=== PATIENT | female | born 1960 | race Caucasian/White ===

== ENCOUNTER 2016-09-03 17:20 | Emergency (ER) | payer OTHER ==
[~2016-09-03] VITALS: Ht 165.1 cm; Wt 63.8 kg
[~2016-09-03 17:20] MED LIST: LEVO75TA10 PO
[2016-09-03 17:22] VITALS: TEMP 98.3; Ht 165.1 cm; Wt 63.8 kg
--- OUTSIDE RECORDS SUMMARY | 2016-09-03 17:23 | XMS REPORT | Continuity of Care Document ---
Author Author [facility] Organization [facility] Address Unknown Phone Unavailable Support Name Relationship Address Phone CORTEZ BOUCHER DO Caregiver [address] [place] [address] Unavailable REANNA HERRERA DPM Caregiver [address] [place] [address] Unavailable MONTESINOS CHAD S Next Of Kin [address] [place] [address] Unavailable Insurance Providers Guarantor Edna Montesinos Address [address] [place] [address] Email [email or web address] Payer [employer] Policy Number [id number] Subscriber's Name Chad Montesinos Relationship 01 Spouse Advance Directives Directive Response Recorded Date/Time Resuscitation Documents on File No 11/10/15 6:25am DPOA for Healthcare Only No 11/10/15 6:25am Problems No problem information available. Medications Current Home Medications Medication Dose Units Route Directions Days Qty Instructions Start Date Levothyroxine Sodium 75 Mcg Tablet 0.5 Tab Oral Before Breakfast Once daily before breakfast. 11/09/15 Past Home Medications Medication Directions Ordered Status Levothyroxine Sodium 25 Mcg Tablet, 12.5 Mcg Oral Before Breakfast 11/08/15 Discontinued Social History Social History Problem Response Recorded Date/Time Onset Date Status Chewing Tobacco Status No 11/10/2015 6:32am Not Applicable Not Applicable Hx Substance Use No 11/10/2015 6:32am Not Applicable Not Applicable Hx Alcohol Use No 11/10/2015 6:32am Not Applicable Not Applicable Has the pt used tobacco in the last 12 months No 11/10/2015 6:32am Not Applicable Not Applicable Query Response Start Date Stop Date Smoking Status Never smoker Hospital Discharge Instructions Instructions: Care Instructions: Reason for Hospitalization: surgery I was in the hospital because (patient own words): FIX BUNION AND HAMMER TOE LEFT FOOT Discharge Diet: regular Follow Up Appointments: 10 days Pending Lab / Results: No Pending Lab Patient Instructions: see paper work Wound/Incision Care: n/a Durable Medical Equipment: CAM walker Notify Physician If: see paper work General Information: see paper work Condition at time of discharge: Good Plan of Care Discharge Date 11/10/15 9:35am Prescriptions See Medication Section Functional Status Query Response Date Recorded Ability to complete ADL's impeded by Impaired Mobility November 10, 2015 6:25am Allergies, Adverse Reactions, Alerts Allergen Type Severity Reaction Status Last Updated Walnuts Allergy Unknown ITCHING IN MOUTH Active 11/08/15 Dairy Adverse Reaction Unknown INTOLERANCE Active 11/08/15 Gluten Adverse Reaction Unknown INTOLERANCE Active 11/08/15 Immunizations Query Response on File Recorded Date/Time Hx Influenza Vaccination No 11/10/15 6:32am Hx Pneumococcal Vaccination No 11/10/15 6:32am Hx Influenza Vaccination No 11/10/15 6:32am Vital Signs Acute Vital Signs Vital Response Date/Time Temperature (Fahrenheit) 97.1 deg F (96.8 - 99.1) 11/10/2015 8:28am Temperature (Calculated Celsius) 36.78994 degrees C (36.0 - 37.3) 11/10/2015 8:28am Temperature Source Temporal 11/10/2015 8:28am Pulse Rate (adult) 49 bpm (60 - 100) 11/10/2015 9:07am Respiratory Rate 16 breaths/min (10 - 20) 11/10/2015 9:07am O2 Sat by Pulse Oximetry 100 % (90 - 100) 11/10/2015 9:07am Oxygen Delivery Method Room Air 11/10/2015 9:07am Blood Pressure 153/68 mm Hg 11/10/2015 9:07am Blood Pressure Source Automatic Cuff 11/10/2015 8:45am Height (Feet) 5 feet 11/10/2015 6:02am Height (Inches) 5.50 inches 11/10/2015 6:02am Weight (Kilograms) 62.700 kg 11/10/2015 6:02am Body Mass Index (BMI) 22.7 11/10/2015 6:02am Results No known relevant diagnostic tests, laboratory data and/or discharge summary. Procedures Procedure Status Date Provider(s) Bunionectomy, left Completed 11/10/15 REANNA HERRERA DPNaila Encounters Encounter Location Arrival/Admit Date Discharge/Depart Date Attending Provider Departed [facility] 11/10/15 5:39am 11/10/15 9: 35am REANNA HERRERA DPM
--- OUTSIDE RECORDS SUMMARY | 2016-09-03 17:24 | XMS REPORT | Continuity of Care Document ---
Author Author [facility] - [facility] Address Unknown Phone Unavailable Allergies Active Description Code Type Severity Reaction Onset Reported/Identified Relationship to Patient Clinical Status Yes Unable to Assess Yes Unable to Assess N/A N/A Medications Problems Date Dx Coded Attending Type Code Diagnosis Diagnosed By 07/21/2010 A 62415 TENSION HEADACHE 10/06/2013 MIRANDA BARRY [id number] OSTEOPOROSIS NOS 10/09/2013 MIRANDA BARRY 2449 HYPOTHYROIDISM NOS 12/21/2013 MIRANDA BARRY 70461 OSTEOPOROSIS NOS 12/23/2013 MIRANDA BARRY 71430 LEUKOCYTOPENIA NOS Procedures Results Test Result Range CBC/ AUTO DIFF - 10/09/13 09:45 WHITE BLOOD COUNT 2.90 10 4.60-10.20 HEMATOCRIT 40.5 % 37.0-47.0 HEMOGLOBIN 14.1 g/dl 12.0-16.0 PLATELET COUNT 210 10 142-424 RBC 4.38 10 4.20-5.40 MCV 92.5 fl 80.0-100.0 MCH 32.2 pg 26.0-34.0 MCHC 34.8 g/dl 29.0-37.0 RDW 12.6 % 11.5-14.5 MPV 10.60 fl GRAN% 54.8 % 37.0-80.0 LYMPH% 26.90 % 10.00-50.00 MONO% 12.80 % 0.00-12.00 EOS% 4.50 % 0.00-7.00 BASO% 1.00 % 0.00-2.50 GRAN# 1.59 10 2.00-6.90 LYMPH# 0.78 10 0.60-3.40 MONO# 0.37 10 0.00-0.90 EOS# 0.13 10 0.00-0.50 BASO# 0.03 10 0.00-0.20 FREE T4 - 10/09/13 09:45 FREE T4 1.10 ng/dl 0.77-1.61 HTSH - 10/09/13 09:45 HTSH 1.83 uiU/ml 0.34-4.82 COMPREHENSIVE METABOL - 10/09/13 09:45 CREATININE 0.9 mg/dl 0.6-1.3 SODIUM 138 mmol/L 136-145 TOTAL BILIRUBIN 1.1 mg/dl 0.0-1.0 TOTAL PROTEIN 6.9 g/dl 6.4-8.2 ALBUMIN 3.8 g/dl 3.4-5.0 ALK. PHOSPHATASE 78 U/L 50-136 BUN 18 mg/dl 7-18 CALCIUM 8.5 mg/dl 8.5-10.1 CHLORIDE 101 mmol/L 98-107 CO2 31.0 mmol/L 21.0-32.0 GLUCOSE 86 mg/dl 70-110 POTASSIUM 3.6 mmol/L 3.5-5.1 AST 21 U/L 15-37 ALT 25 U/L 12-78 AGAP 9.6 6.0-16.0 BN/CR 20.0 6.0-20.0 HTSH - 12/21/13 08:45 HTSH 2.15 uiU/ml 0.34-4.82 FREE T4 - 12/21/13 08:45 FREE T4 1.20 ng/dl 0.77-1.61 LIPID PANEL - 12/21/13 08:45 TRIGLYCERIDES 38 mg/dl 0-150 CHOLESTEROL 219 mg/dl 0-200 HDL CHOLESTEROL 100 mg/dl >40- LDL 111 mg/dl 0-130 VIT D 25-HYDROXY - 12/21/13 08:45 Reference Lab CBC/ AUTO DIFF - 12/23/13 15:05 WHITE BLOOD COUNT 4.55 10 4.60-10.20 HEMATOCRIT 41.1 % 37.0-47.0 HEMOGLOBIN 14.4 g/dl 12.0-16.0 PLATELET COUNT 210 10 142-424 RBC 4.47 10 4.20-5.40 MCV 91.9 fl 80.0-100.0 MCH 32.2 pg 26.0-34.0 MCHC 35.0 g/dl 29.0-37.0 RDW 12.9 % 11.5-14.5 MPV 10.60 fl GRAN% 56.2 % 37.0-80.0 LYMPH% 27.90 % 10.00-50.00 MONO% 10.10 % 0.00-12.00 EOS% 5.10 % 0.00-7.00 BASO% 0.70 % 0.00-2.50 GRAN# 2.56 10 2.00-6.90 LYMPH# 1.27 10 0.60-3.40 MONO# 0.46 10 0.00-0.90 EOS# 0.23 10 0.00-0.50 BASO# 0.03 10 0.00-0.20 Encounters ACCT No. Visit Date/Time Discharge Status Pt. Type Provider Facility Loc./Unit Complaint [id number] 12/23/2013 15:00:00 12/23/2013 15 :00:00 DIS Outpatient [facility] LAB [id number] 12/21/2013 08:15:00 12/21/2013 08 :15:00 DIS Outpatient [facility] LAB [id number] 10/09/2013 07:58:00 10/09/2013 07 :58:00 DIS Outpatient [facility] LAB [id number] 10/06/2013 09:26:00 10/06/2013 09 :26:00 DIS Outpatient [facility] RAD [id number] 10/09/2012 17:57:00 10/09/2012 17 :57:00 DIS Outpatient MOISE SAXENA [facility] LAB [id number] 09/29/2012 07:05:00 09/29/2012 07 :05:00 DIS Outpatient [facility] LAB [id number] 07/21/2010 09:48:00 Document Registration
[2016-09-03] MEDS ORDERED: G.I. COCKTAIL 30ml PO ONE (17:30)
--- OUTSIDE RECORDS SUMMARY | 2016-09-03 17:35 | XMS REPORT | Continuity of Care Document ---
Author Author [facility] - [facility] Address Unknown Phone Unavailable Allergies Active Description Code Type Severity Reaction Onset Reported/Identified Relationship to Patient Clinical Status Yes Unable to Assess Yes Unable to Assess N/A N/A Medications Problems Date Dx Coded Attending Type Code Diagnosis Diagnosed By 07/21/2010 A [id number] TENSION HEADACHE 10/06/2013 MIRANDA BARRY [id number] OSTEOPOROSIS NOS 10/09/2013 MIRANDA BARRY 2449 HYPOTHYROIDISM NOS 12/21/2013 MIRANDA BARRY 14715 OSTEOPOROSIS NOS 12/23/2013 MIRANDA BARRY 01761 LEUKOCYTOPENIA NOS Procedures Results Test Result Range [...] Status Pt. Type Provider Facility Loc./Unit Complaint [id number] 12/23/2013 15:00:00 12/23/2013 15 :00:00 DIS Outpatient [facility] LAB [id number] 12/21/2013 08:15:00 12/21/2013 08 :15:00 DIS Outpatient [facility] LAB [id number] 10/09/2013 07:58:00 10/09/2013 07 :58:00 DIS Outpatient [facility] LAB [id number] 10/06/2013 09:26:00 10/06/2013 09 :26:00 DIS Outpatient [facility] RAD [id number] 10/09/2012 17:57:00 10/09/2012 17 :57:00 DIS Outpatient MOISE SAXENA [facility] LAB [id number] 09/29/2012 07:05:00 09/29/2012 07 :05:00 DIS Outpatient [facility] LAB [id number] 07/21/2010 09:48:00 Document Registration
--- NOTE | 2016-09-03 17:42 | ERPDOC ---
Departure Disposition Decision Date: Sep 03, 2016 Disposition Decision Time: 18:18 (SGRIMMA JUAREZ APRN) Disposition: 01 DISCHARGED HOME, SELF-CARE Impression Impression (SGRIMMA JUAREZ APRN) Impression: Primary Impression: Epigastric abdominal pain Severity: Moderate (RIMMA RENTERIA APRN) Condition: Stable Seen By: Mid-level only (RIMMA RENTERIA APRN) Referrals: CORTEZ BOUCHER DO (Family) Patient Instructions: Gastritis (ED) Problems/Meds/Labs Reviewed?: Yes Medications reviewed and manag: Yes (RIMMA RENTERIA APRN) Additional Instructions: Take the Omeprazole as prescribed. If this persists then I do want you to follow up with your primary care provider for further evaluation. Otherwise return to ER with any severe pain, shortness of breath, or new issues/concerns. Follow up care ordered?: Yes Mental Status: Alert (RIMMA RENTERIA APRN) Scripts Omeprazole (Omeprazole) 20 Mg Tablet. 20 MG PO ACB, #20 TAB 0 Refills Take one tablet by mouth twice daily for 7 days, then one tablet by mouth daily. Prov: SGRIMMA JUAREZ APRN 09/03/16 HPI - Chest Pain General Chief Complaint: Chest Pain Stated Complaint: CHEST PRESSURE/NAUSEA/DIZZY WHEN STANDING Time Seen by Provider: 17:30 Source: patient Exam Limitations: no limitations (RIMMA RENTERIA APRN) Time Seen by Provider: 17:30 (KALLI CHAVIS MD) HPI - Chest Pain Initial Comments She had onset of chest pain last night after dinner. This was in the center of her chest and is more of a discomfort. She denies and vomiting but has felt a little nauseated. Has never had trouble like this in the past. She did eat some lunch today and the pain did not improve or get worse. Has not taken any medications for this at all. No cardiac history and no family history of heart disease. Does feel like she gets dizzy when she stands up. Occurred At: home Onset/Timing: Gradual Duration: 12-24 hrs Activities at Onset/Context: during/after eating Location: epigastric 1 - area of pain Quality: sharp Associated Symptoms: abdominal pain (epigastric abd pain), nausea/vomiting, shortness of breath, DENIES: back pain, diaphoresis, dizziness, edema, fast HR, fatigue, fever/chills, headache, heartburn, irregular HR, rash, slow HR, swelling/lump in chest, syncope, weakness Chest Pain Radiation: no radiation Nitro Today/Relief: no nitro taken today Aspirin Treatment Today: unknown Prior Chest Pain/Cardiac Rabia: no prior chest pain Hx of Similar Symptoms: No (NOLD,RIMMA N CENSUS ENUMERATOR) Allergies: Coded Allergies: Walnuts (Verified Allergy, Unknown, ITCHING IN MOUTH, 09/03/16) Dairy (Verified Adverse Reaction, Unknown, INTOLERANCE, 09/03/16) gluten (Verified Adverse Reaction, Unknown, INTOLERANCE, 09/03/16) Past History Past Medical History Pt denies signifigant PMH (NOLD,RIMMA N CENSUS ENUMERATOR) Surgical History General: tonsils Joint: other (bunionectomy) (NOLD,RIMMA N CENSUS ENUMERATOR) Family History Family History: Negative (NOLD,RIMMA N CENSUS ENUMERATOR) Vaccines Hx Influenza Vaccination: No Hx Pneumococcal Vaccination: No (NOLD,RIMMA N CENSUS ENUMERATOR) Social History Smoking Status: Never smoker Does patient use chewing tobac: No Substance Use Type: does not use Alcohol Intake: none (NOLD,RIMMA N CENSUS ENUMERATOR) Review of Systems Constitutional Constitutional: DENIES: chills, dizziness, fatigue, fever, weakness (NOLD, RIMMA N CENSUS ENUMERATOR) Cardiovascular Cardiac: chest pain, DENIES: dyspnea on exertion, orthopnea Rhythm/Rate: DENIES: irregular beat, palpitations Vascular: DENIES: pedal edema, unilateral swelling (NOLD,RIMMA N CENSUS ENUMERATOR) Pulmonary Respiratory: DENIES: cough, dyspnea, sputum, tachypnea (NOLD,RIMMA N CENSUS ENUMERATOR) GI Upper Abdomen: DENIES: nausea, pain, vomiting Lower Abdomen: DENIES: constipation, diarrhea, pain (NOLD,RIMMA N CENSUS ENUMERATOR) Musculoskeletal General: DENIES: pain (NOLD,RIMMA N CENSUS ENUMERATOR) Integumentary Skin: DENIES: rash (NOLD,RIMMA N CENSUS ENUMERATOR) Neurological General: DENIES: headache, numbness, tingling, weakness (NOLD,RIMMA N CENSUS ENUMERATOR) Physical Exam General General Nourishment: well nourished, well developed, appears stated age, no acute distress, adult General Body Habitus: well groomed (RIMMA RENTERIA APRN) Vitals and Pain First Documented Vital Signs Date Time Temp Pulse Resp B/P Pulse Ox O2 Delivery O2 Flow Rate FiO2 09/03/16 17:22 98.3 84 16 177/82 100 Room Air (KALLI CHAVIS MD) Vitals and Pain Weight: Kilograms: Height (feet): 5 Height (inches): 5.50 Triage Pain Scale: (RIMMA RENTERIA APRN) RN VS reviewed by Provider: Yes (RIMMA RENTERIA APRN) Normal Exams: Neck: Full range of motion, without adenopathy, JVD, bruits or thyromegaly Chest/Resp: Clear all payne, with good airflow, and symmetry bilaterally CV: Regular rate and rhythm, without murmur or gallop, Pulses 2+ all extremities, capillary refill, <2 seconds all ext., no pedal edema noted Abdomen: Bowel sounds positive, non-distended, no hepatosplenomegaly, masses or bruits noted Lymphatic: No lymphadenopathy, or lymphedema noted Integumentary: No rashes, hives, or bruising noted Neurologic: Patient is alert, and oriented Psychiatric: Patient exhibits, appropriate attention, emotion and affect (RIMMA RENTERIA APRN) Abdomen Inspection: NOT FOUND: distention Palpation: FOUND: soft, tender (mild TTP in the LUQ and epigastric region) Percussion: NOT FOUND: tympanitic Auscultation: FOUND: normoactive (RIMMA RENTERIA APRN) Differential Diagnoses Considering: Acute OK, Anxiety/Panic, Angina, Costochondritis, Esophageal Spasm , GERD, Pneumonia, Muscle Spasm (RIMMA RENTERIA APRN) Progress Results/Orders Medications Current ED Medications Pharmacy Profile Note (/Maalox/ Lidocaine Soln) 30 ml O ONCE PO Last administered on 09/03/16t 18:13; Start 09/03/16 at 17:30; Stop 09/03/16 at 17:31 ; Status DC Omeprazole (Prilosec) 20 mg O ONCE PO ; Start 09/03/16 at 18:30; Stop 09/03/16 at 18:31; Status DC (KALLI CHAVIS MD) Progress Progress CBC, BMP, and troponin today are normal. Chest xray is clear. Given that her pain has been going on for almost 24 hours and no EKG changes, no elevation is troponin will go ahead and let her go home. Her pain is more of an epigastric type pain so will have her start some Omeprazole today. Follow up with her PCP if this is not improving. (RIMMA RENTERIA APRN) Progress Patient's history and exam discussed with CENSUS ENUMERATOR. EKG and CXR interpreted. Labs and imaging reviewed. Agree with care given in ER and follow up plan as outlined.. (KALLI CHAVIS MD) EKG EKG : Rate: 60-100 Rhythm: sinus [place]: normal QRS: normal Intervals: normal ST/T: non-specific changes Interpreted by: signing physician EKG Comments no prior on record to compare (KALLI CHAVIS MD) Xray Xray : Reason for Exam: chest pain Xray: CXR PA/Lat Interpretation: Normal (RIMMA RENTERIA APRN) Xray : Xray: CXR PA/Lat Interpretation: Normal, Interpreted by Me (KALLI CHAVIS MD) RIMMA RENTERIA APRN Sep 03, 2016 17:42 KALLI CHAVIS MD Sep 05, 2016 11:03 Monocytes (%) (Auto) 7.1% Eosinophils (%) (Auto) 0.7% Basophils (%) (Auto) 0.2% Absolute Immature Granulocyte (auto 0.00T/MM3 Absolute Neutrophils (auto) 5.0T/MM3 Absolute Lymphocytes (auto) 0.6T/MM3 Absolute Monocytes (auto) 0.4T/MM3 Absolute Eosinophils (auto) 0.0T/MM3 Absolute Basophils (auto) 0.0T/MM3 Turbidity < 20 Sodium Level 140MEQ/L Potassium Level 3.5MEQ/L Chloride Level 104MEQ/L Carbon Dioxide Level 26MEQ/L Anion Gap 10MEQ/L Blood Urea Nitrogen 15.0MG/DL Creatinine 0.8MG/DL Glomerular Filtration Rate Calc 74 BUN/Creatinine Ratio 19RATIO Glucose Level 114MG/DL Calculated Osmolality 271MOSM/KG Calcium Level 9.0MG/DL Icterus Index < 2 Troponin I < 0.012ng/ml Chemistry Specimen Hemolysis < 15 Medications Current ED Medications Pharmacy Profile Note (/Maalox/ Lidocaine Soln) 30 ml O ONCE PO Last administered on 09/03/16t 18:13; Start 09/03/16 at 17:30; Stop 09/03/16 at 17:31 ; Status DC Omeprazole (Prilosec) 20 mg O ONCE PO ; Start 09/03/16 at 18:30; Stop 09/03/16 at 18:31; Status DC Progress Progress CBC, BMP, and troponin today are normal. Chest xray is clear. Given that her pain has been going on for almost 24 hours and no EKG changes, no elevation is troponin will go ahead and let her go home. Her pain is more of an epigastric type pain so will have her start some Omeprazole today. Follow up with her PCP if this is not improving. Xray Xray : Reason for Exam: chest pain Xray: CXR PA/Lat Interpretation: Normal RIMMA RENTERIA APRN Sep 03, 2016 17:42
[2016-09-03 17:50] LABS: BASOPHILS % (AUTO) 0.2 % (0-2); EOSINOPHILS % (AUTO) 0.7 % (0-4); HCT - HEMATOCRIT 43.1 % (36-46); HGB - HEMOGLOBIN 14.9 GM/DL (12-16); LYMPHOCYTES # (AUTO) 0.6 T/MM3 (1-4.8); LYMPHOCYTES % (AUTO) 9.3 % (23-45); MEAN CORPUSCULAR HGB 32.3 UUG (26-34); MEAN CORPUSCULAR HGB CONC(MCHC 34.6 GM/DL (31-37); MEAN CORPUSCULAR VOLUME 93.5 UM3 (80-100); MEAN PLATELET VOLUME 10.6 UM3 (9.4-12.4); MONOCYTES # (AUTO) 0.4 T/MM3 (0-0.8); MONOCYTES % (AUTO) 7.1 % (0-9.0); NEUTROPHILS % (AUTO) 82.7 % (33-66); RED BLOOD COUNT 4.61 M/MM3 (4.00-5.20)
[2016-09-03] MEDS ORDERED: LORA10TA44 PO (17:52)
[2016-09-03 17:59] LABS: ANION GAP 10 MEQ/L (5-15); BUN/CREATININE RATIO 19 RATIO (6-26); CHLORIDE 104 MEQ/L (98-107); CO2 - CARBON DIOXIDE 26 MEQ/L (22-30); CREATININE 0.8 MG/DL (0.7-1.2); GLOMERULAR FILTRATION RATE 74; GLUCOSE 114 MG/DL (65-110); POTASSIUM 3.5 MEQ/L (3.6-5); SODIUM 140 MEQ/L (134-144)
[2016-09-03] MEDS ORDERED: OMEP-122 PO (18:19)
[2016-09-03] MEDS ORDERED: OMEPRAZOLE 20 MG CAPSULE PO ONE (18:30)
[2016-09-03 18:55] VITALS: BP 150/71; PULSE 80; RESP 16; O2SAT 99
--- NOTE | 2016-09-04 08:18 | DI ---
INDICATION: ITS.REASON: chest pain PROCEDURE: CHEST 2-VIEWS UPRIGHT (PA \T\ LAT) Encounter: Initial COMPARISON: None FINDINGS: The lungs are clear without evidence of focal abnormal airspace opacity. There is no pleural effusion or pneumothorax. The heart size, mediastinal contours and pulmonary vascularity are within normal limits. There is no significant skeletal abnormality. IMPRESSION: No acute cardiopulmonary disease. .
== END 2016-09-03 18:59 | disposition home or self-care (01) ==
LOC: ED 17:20
DX: R07.89 Other chest pain (principal); R10.13 Epigastric pain; R11.0 Nausea; R42 Dizziness and giddiness
CPT/HCPCS: 71020; 80048; 84484; 85025; 93005; 99284; J7999

== ENCOUNTER 2016-11-01 06:02 | Day surgery (SDC) | payer OTHER ==
[~2016-11-01] VITALS: Ht 168.9 cm; Wt 61.3 kg
[~2016-11-01 06:02] MED LIST changes: +LORA10TA44 PO; +MULT-933 PO
--- OUTSIDE RECORDS SUMMARY | 2016-11-01 06:05 | XMS REPORT | Continuity of Care Document ---
Author Author [facility] Organization [facility] Address Unknown Phone Unavailable Support Name Relationship Address Phone KALLI CHAVIS MD Caregiver [address] [place] [address] Unavailable CORTEZ BOUCHER DO Caregiver [phone] [place] [address] Unavailable CHAD MONTESINOS Next Of Kin [address] [place] [address] Unavailable Insurance Providers Guarantor Edna Montesinos Address [address] [place] [address] Email [email or web address] Payer [employer] Policy Number [id number] Subscriber's Name Chad Montesinos Relationship 01 Spouse Advance Directives Directive Response Recorded Date/Time Advanced Directives Type None 09/03/16 5:22pm Chief Complaint and Reason for Visit Chief Complaint Chest Pain Reason for Visit [id number] Problems Past Problems Medical Problem Onset Date Epigastric abdominal pain Unknown Medications Current Home Medications Medication Dose Units Route Directions Days Qty Instructions Start Date Levothyroxine Sodium 75 Mcg Tablet 37.5 Mg Oral Before Breakfast 11/09/15 Loratadine (Allergy) 10 Mg Tablet 10 Mg Oral Daily as needed for Allery Symptoms 09/03/16 Omeprazole 20 Mg Tablet.dr 20 Mg Oral Before Breakfast 20 Tablet Take one tablet by mouth twice daily for 7 days, then one tablet by mouth daily. Past Home Medications Medication Directions Ordered Status Levothyroxine Sodium 25 Mcg Tablet, 12.5 Mcg Oral Before Breakfast 11/08/15 Discontinued Social History Social History Problem Response Recorded Date/Time Onset Date Status Hx Substance Use No 09/03/2016 5:22pm Not Applicable Not Applicable Hx Alcohol Use No 09/03/2016 5:22pm Not Applicable Not Applicable Has the pt used tobacco in the last 12 months No 11/10/2015 6:32am Not Applicable Not Applicable Query Response Start Date Stop Date Smoking Status Never smoker Hospital Discharge Instructions No hospital discharge instructions. Plan of Care Discharge Date 09/03/16 6:59pm Disposition 01 DISCHARGED HOME, SELF-CARE Condition at Discharge Stable Instructions/Education Provided Gastritis (ED) Prescriptions See Medication Section Referrals CORTEZ BOUCHER DO Address: [address] [place] [phone] Additional Instructions/Education Take the Omeprazole as prescribed. If this persists then I do want you to follow up with your primary care provider for further evaluation. Otherwise return to ER with any severe pain, shortness of breath, or new issues/concerns. Care Plan and Goals Physician Care Plan Problem:Gastritis Goal: Follow up with primary care provider Instructions: Take medications and follow care plan as discussed/written Functional Status No functional status results. Allergies, Adverse Reactions, Alerts Allergen Type Severity Reaction Status Last Updated Walnuts Allergy Unknown ITCHING IN MOUTH Active 09/03/16 Dairy Adverse Reaction Unknown INTOLERANCE Active 09/03/16 Gluten Adverse Reaction Unknown INTOLERANCE Active 09/03/16 Immunizations Query Response on File Recorded Date/Time Hx Influenza Vaccination No 11/10/15 6:32am Hx Pneumococcal Vaccination No 11/10/15 6:32am Hx Influenza Vaccination No 11/10/15 6:32am Vital Signs Acute Vital Signs Vital Response Date/Time Temperature (Fahrenheit) 98.3 deg F (96.8 - 99.1) 09/03/2016 5:22pm Temperature (Calculated Celsius) 36.05728 degrees C (36.0 - 37.3) 09/03/2016 5:22pm Pulse Rate (adult) 80 bpm (60 - 100) 09/03/2016 6:55pm Respiratory Rate 16 breaths/min (10 - 20) 09/03/2016 6:55pm O2 Sat by Pulse Oximetry 99 % (90 - 100) 09/03/2016 6:55pm Blood Pressure 150/71 mm Hg 09/03/2016 6:55pm Height (Feet) 5 feet 09/03/2016 5:22pm Height (Inches) 5.00 inches 09/03/2016 5:22pm Weight (Kilograms) 63.800 kg 09/03/2016 5:22pm Body Mass Index (BMI) 23.0 09/03/2016 5:22pm Results Laboratory Results Test Name Result Units Flags Reference Collection Date/Time Result Date/ Time Comments White Blood Count 6.0 T/MM3 4.5-11.0 09/03/2016 5:42pm 09/03/2016 5: 50pm Red Blood Count 4.61 M/MM3 4.00-5.20 09/03/2016 5:42pm 09/03/2016 5: 50pm Hemoglobin 14.9 GM/DL 12-16 09/03/2016 5:42pm 09/03/2016 5:50pm Hematocrit 43.1 % 36-46 09/03/2016 5:42pm 09/03/2016 5:50pm Mean Corpuscular Volume 93.5 UM3 80-100 09/03/2016 5:42pm 09/03/2016 5: 50pm Mean Corpuscular Hemoglobin 32.3 UUG 26-34 09/03/2016 5:42pm 2016 5:50pm Mean Corpuscular Hemoglobin Concent 34.6 GM/DL 31-37 09/03/2016 5:42pm 09/03/2016 5:50pm RDW Standard Deviation 41.9 FL 36.9-50.2 09/03/2016 5:42pm 09/03/2016 5 :50pm Platelet Count 172 T/MM3 130-400 09/03/2016 5:42pm 09/03/2016 5:50pm Mean Platelet Volume 10.6 UM3 9.4-12.4 09/03/2016 5:42pm 09/03/2016 5: 50pm Neutrophils (%) (Auto) 82.7 % H 33-66 09/03/2016 5:42pm 09/03/2016 5: 50pm Lymphocytes (%) (Auto) 9.3 % L 23-45 09/03/2016 5:42pm 09/03/2016 5: 50pm Monocytes (%) (Auto) 7.1 % 0-9.0 09/03/2016 5:42pm 09/03/2016 5:50pm Eosinophils (%) (Auto) 0.7 % 0-4 09/03/2016 5:42pm 09/03/2016 5:50pm Basophils (%) (Auto) 0.2 % 0-2 09/03/2016 5:42pm 09/03/2016 5:50pm Immature Granulocyte % (Auto) 0.0 % 0.0-0.5 09/03/2016 5:42pm 2016 5:50pm Absolute Neutrophils (auto) 5.0 T/MM3 1.8-7.7 09/03/2016 5:42pm 2016 5:50pm Absolute Lymphocytes (auto) 0.6 T/MM3 L 1-4.8 09/03/2016 5:42pm 2016 5:50pm Absolute Monocytes (auto) 0.4 T/MM3 0-0.8 09/03/2016 5:42pm 09/03/2016 5:50pm Absolute Eosinophils (auto) 0.0 T/MM3 0-0.5 09/03/2016 5:42pm 2016 5:50pm Absolute Basophils (auto) 0.0 T/MM3 0-0.2 09/03/2016 5:42pm 09/03/2016 5:50pm Absolute Immature Granulocyte (auto 0.00 T/MM3 0.00-0.03 09/03/2016 5: 42pm 09/03/2016 5:50pm Icterus Index < 2 0-7 09/03/2016 5:42pm 09/03/2016 5:59pm Chemistry Specimen Hemolysis < 15 0-25 09/03/2016 5:42pm 09/03/2016 5 :59pm 0-25: Specimen Exhibited No Hemolysis. Turbidity < 20 0-20 09/03/2016 5:42pm 09/03/2016 5:59pm Sodium Level 140 MEQ/L 134-144 09/03/2016 5:42pm 09/03/2016 5:59pm Potassium Level 3.5 MEQ/L L 3.6-5 09/03/2016 5:42pm 09/03/2016 5:59pm Chloride Level 104 MEQ/L 98-107 09/03/2016 5:42pm 09/03/2016 5:59pm Carbon Dioxide Level 26 MEQ/L 22-30 09/03/2016 5:42pm 09/03/2016 5: 59pm Anion Gap 10 MEQ/L 5-09/03/2016 5:42pm 09/03/2016 5:59pm Blood Urea Nitrogen 15.0 MG/DL 7-17 09/03/2016 5:42pm 09/03/2016 5: 59pm Creatinine 0.8 MG/DL 0.7-1.2 09/03/2016 5:42pm 09/03/2016 5:59pm BUN/Creatinine Ratio 19 RATIO 6-09/03/2016 5:42pm 09/03/2016 5:59pm Glomerular Filtration Rate Calc 74 09/03/2016 5:42pm 09/03/2016 5: 59pm Glucose Level 114 MG/DL H 65-110 09/03/2016 5:42pm 09/03/2016 5:59pm Calculated Osmolality 271 MOSM/KG 261-280 09/03/2016 5:42pm 09/03/2016 5:59pm Calcium Level 9.0 MG/DL 8.4-10.2 09/03/2016 5:42pm 09/03/2016 5:59pm Troponin I < 0.012 ng/ml 0-0.12 09/03/2016 5:42pm 09/03/2016 6:10pm Troponin values with a difference of 55% increase from orginal troponin value represent a true biological DELTA value. (%increase Calc=Orginal Troponin value, divided by subsequent Troponin value, multiplied by 100) Procedures No known history of procedures. Encounters Encounter Location Arrival/Admit Date Discharge/Depart Date Attending Provider Departed Emergency Room [facility] 09/03/16 5:20pm 09/03/16 6: 59pm KALLI CHAVIS MD Recent Diagnosis
--- OUTSIDE RECORDS SUMMARY | 2016-11-01 06:06 | XMS REPORT | Continuity of Care Document ---
Author Author [facility] - [facility] Address Unknown Phone Unavailable Allergies Active Description Code Type Severity Reaction Onset Reported/Identified Relationship to Patient Clinical Status Yes Unable to Assess Yes Unable to Assess N/A N/A Medications Problems Date Dx Coded Attending Type Code Diagnosis Diagnosed By 07/21/2010 A 24303 TENSION HEADACHE 10/06/2013 MIRANDA BARRY [id number] OSTEOPOROSIS NOS 10/09/2013 MIRANDA BARRY 2449 HYPOTHYROIDISM NOS 12/21/2013 MIRANDA BARRY 55592 OSTEOPOROSIS NOS 12/23/2013 MIRANDA BARRY 39585 LEUKOCYTOPENIA NOS Procedures Results Test Result Range [...] Status Pt. Type Provider Facility Loc./Unit Complaint [id number] 12/23/2013 15:00:00 12/23/2013 15 :00:00 DIS Outpatient [facility] LAB [id number] 12/21/2013 08:15:00 12/21/2013 08 :15:00 DIS Outpatient [facility] LAB [id number] 10/09/2013 07:58:00 10/09/2013 07 :58:00 DIS Outpatient [facility] LAB [id number] 10/06/2013 09:26:00 10/06/2013 09 :26:00 DIS Outpatient [facility] RAD [id number] 10/09/2012 17:57:00 10/09/2012 17 :57:00 DIS Outpatient [facility] LAB [id number] 09/29/2012 07:05:00 09/29/2012 07 :05:00 DIS Outpatient [facility] LAB [id number] 07/21/2010 09:48:00 Document Registration
[2016-11-01 06:41] VITALS: Ht 168.9 cm; Wt 61.3 kg
[2016-11-01] MEDS ORDERED: LIDOCAINE 1% (10mg/ml) 30ml SDV ONE (06:51)
[2016-11-01] MEDS ORDERED: BUPIVACAINE 0.5% (5mg/ml) 30ml INJ SDV ONE (06:51)
[2016-11-01] MEDS ORDERED: DEXAMETHASONE 4mg/ml - 1ml INJECTION ONE (06:52)
[2016-11-01] MEDS ORDERED: LIDOCAINE 1% (10mg/ml) 2ml SDV INJ ONE (07:00)
[2016-11-01] MEDS ORDERED: LR 1,000 ML IV PRN (07:00)
--- NOTE | 2016-11-01 07:08 | ANESPREOP ---
Anesthesia Record Date and Time DATE: 11/01/16 TIME: 07:05 Pre-Op Diagnosis painful right second hammertoe Proposed Surgical Procedure ARTHROPLASTY OF RT. SECOND DISTAL INTERPHALANGEAL JOINT AND PROXIMAL JOINT NPO since: [place] Allergies: Coded Allergies: Walnuts (Verified Allergy, Unknown, ITCHING IN MOUTH, 11/01/16) Dairy (Verified Adverse Reaction, Unknown, INTOLERANCE, 11/01/16) gluten (Verified Adverse Reaction, Unknown, INTOLERANCE, 11/01/16) Ht/Wt/BMI Height: 5 ' 6.50 " Weight: 61.300 kg BMI: 21.5 kg/m2 Medications Inpatient Medications Current Medications Medications (Trade) Dose Ordered Sig/Freya Start Time Stop Time Status Last Admin Dose Admin Lactated Ringer's (Lactated Ringers) 1,000 ml @ 50 mls/hr Q20H PRN 11/01/16 07:00 11/01/16 06:42 50 MLS/HR Levothyroxine Sodium (Levothyroxine Sodium) 75 Mcg Tablet, 37.5 MG PO ACB, ( Reported) Last Taken: on 10/31/16 0400 Loratadine (Allergy) 10 Mg Tablet, 10 MG PO DAILY PRN for ALLERY SYMPTOMS, (Reported) Last Taken: on Unknown Date & Time Multivitamin (Multi-Day Vitamins) 1 Each Tablet, 1 TAB PO DAILY, (Reported) Last Taken: on Unknown Date & Time Currently on Beta Ashok: No Medical/Surgical History Anesthesia PMH: Reports: Arthritis (RA ), Thyroid Disease (HYPO ), Denies: * Diabetes, Anesthesia Reactions (NO AIRWAY ISSUES), Cancer, Clotting Problems, Glaucoma, Hepatitis, Malignant Hyperthermia, Renal Disease, Rheumatic Fever, Sleep Apnea Smoking Status: Never smoker Has pt. smoked today?: No Use Chewing Tobacco?: No Second Hand Exposure: No Substance Use Type: does not use Alcohol Intake: a few times a month (wine) HX of Last Menstrual Period: AGE 51 Past Surgical History Orthopedic Surgeries: Yes - ABNER. BUNIONECTOMY, LEFT FOOT SURGERY Abdominal Surgeries: Genitourinary Surgeries: Cardiac Surgeries: Endocrine Surgeries: Reproductive Surgeries: Neurological Surgeries: Ear Surgeries: Nose Surgeries: Throat Surgeries: Yes - TONSILLECTOMY Other Surgeries: Yes - COLONOSCOPY Anesthesia Adverse Reactions: FOUND none Family Hx of Anesthesia Advers: none Hx of Motion Sickness: Yes Pertinent Findings EKG Rhythm: Sinus Bradycardia Physical Exam Respiratory: Bilat breath sounds equal, Lungs clear Cardiovascular: FOUND Regular rate, rhythm, FOUND No murmur Airway Assessment Mallampati Score: I TMD: 3 Fingerbreadths Neck Extension: Good ASA: 2 Plan Anesthesia Plan: TIVA Discussion Discussed risks/options/alternatives of anesthesia and questions answered. Patient consents. Nursing pain assessment noted. Present: Spouse Attestation Statement Prior to the delivery of any anesthetic medication, I examined the patient, developed the plan, obtained the patient's consent and discussed the risk and benefits of the procedure with the patient/guardian. ZACK HAY CHANGEOVER OPERATOR November 01, 2016 07:08
[2016-11-01] MEDS ORDERED: PROPOFOL 500mg 50 ML IV ONE (07:16)
[2016-11-01] MEDS ORDERED: FENTANYL 100mcg/2ml INJECTION ONE (07:18)
[2016-11-01] MEDS ORDERED: CEFAZOLIN 1 GRAM INJECTION IV ONE (07:30)
[2016-11-01] MEDS ORDERED: KETOROLAC 30mg/ml INJECTION ONE (07:37)
[2016-11-01 07:42] VITALS: BP 97/49; PULSE 51; RESP 16; TEMP 97.4; O2SAT 95
--- NOTE | 2016-11-01 07:46 | ANESPO ---
Post-Op Note Date 11/01/16 Time: 07:46 Status Pt Participated in Evaluation: Pt participated in person Respiratory Function: Airway patent, Regular respirations Cardiovascular Function: Regular pulse Telemetry Pattern: SR Pain Level Intensity: 0 Hydration: IV infusing Complications during Recovery None apparent Follow-Up Instructions Instructions Per Surgeon ZAKC HAY CRNA November 01, 2016 07:46
[2016-11-01 07:50] VITALS: BP 98/54; PULSE 54; RESP 12; O2SAT 97
[2016-11-01 08:00] VITALS: BP 112/57; PULSE 55; RESP 12; O2SAT 97
[2016-11-01 08:10] VITALS: BP 133/64; PULSE 51; RESP 22; O2SAT 99
[2016-11-01 08:20] VITALS: BP 141/68; PULSE 50; RESP 18; O2SAT 100
[2016-11-01 08:30] VITALS: BP 139/57; PULSE 53; RESP 21; O2SAT 100
--- NOTE | 2016-11-01 09:01 | DI ---
Indication: ITS.REASON: post op PROCEDURE: FOOT RIGHT 2 VIEWS: Encounter: Initial Comparison: None Findings: Postsurgical changes are seen with osteotomies in the proximal and middle phalanges of the second toe. Expected postoperative subcutaneous gas. Prior bunionectomy procedure noted in the first metatarsal. Impression: Postoperative changes as above. .
--- NOTE | 2016-11-01 12:03 | OPNOTEF ---
DATE OF OPERATION: 11/01/2016 PREOPERATIVE DIAGNOSIS: Painful right second hammertoe. POSTOPERATIVE DIAGNOSIS: Same. OPERATION: Arthroplasty of the PIP and DIP joints of the second digit right foot. ANESTHESIA: Local with IV sedation SURGEON: Arthur Mccullough DPM HEMOSTASIS: Pneumatic ankle tourniquet. ESTIMATED BLOOD LOSS: Minimal. MATERIALS: None. PATHOLOGY: Bone and soft tissue. COMPLICATIONS None. DESCRIPTION OF OPERATIVE PROCEDURE The patient was brought to the operating room and placed on the operating table in the supine position. A pneumatic ankle tourniquet was then placed on the patient's right ankle. Following IV sedation, local anesthesia was obtained utilizing 10 cc of a 1:1 mixture of 1% lidocaine plain and 0.5% Marcaine plain. The foot was then scrubbed, prepped, and draped in the usual aseptic manner. An Esmarch bandage was then utilized to exsanguinate the patient's tight foot and the tourniquet was inflated. Attention was directed to the 2nd digit where two 2 cm semi-elliptical longitudinal incisions were made over the proximal interphalangeal joint of the digit. The incisions were then deepened through the subcutaneous tissues with care being taken to retract all vital neurovascular structures. The ellipse of skin was removed with sharp and blunt dissection. All bleeders were cauterized and ligated as necessary. A transverse tenotomy and capsulotomy was then performed to the proximal interphalangeal joint of the 2nd digit of the right foot. The head of the proximal phalanx was then freed of all its soft tissue attachments. A double action bone cutter was then used to resect the head of the proximal phalanx which was then passed from the operating room table. The phalanx was then smoothed of its rough edges with a bone rasp. Arthroplasty was also done of the DIP joint of the 2nd digit of the right foot. The wound was then flushed with copious amounts of sterile normal saline and the extensor tendon was reapproximated with 4-0 Vicryl. Skin was reapproximated with 4-0 Prolene. Upon completion of the procedure, the incision was dressed with Betadine soaked 4x4 and covered with sterile compressive dressing such as 4x4's and Ryan. The tourniquet was then deflated and immediate hyperemia returned to all digits. A total of 10 cc of an 8:2 mixture of 0.5% Marcaine and Dexamethasone was infiltrated around the surgical site. The foot was then josemanuel wrapped. The patient tolerated the procedure well and was transferred to the recovery room with all vital signs stable and vascular status intact to the feet. Following postoperative monitoring the patient will be discharged and given instructions and prescriptions which were discussed prior to the surgery. KEVEN
== END 2016-11-01 08:38 | disposition home or self-care (01) ==
LOC: NSC 06:02
PROVIDERS: ATTEND Podiatrist
DX: M20.41 Other hammer toe(s) (acquired), right foot (principal)
CPT/HCPCS: 28285; 73620; J0690; J1100; J1885; J3010; J7120